=== PATIENT | female | born 1985 | race American Indian/Alaskan Native ===

== ENCOUNTER 2021-10-05 05:30 | Emergency (ER) | payer MEDICAID ==
[2021-10-05 05:37] VITALS: BP 143/77
== END 2021-10-05 23:00 | disposition left against medical advice (07) ==
LOC: ED 05:30
DX: R42 Dizziness and giddiness (principal); L29.9 Pruritus, unspecified; Z53.21 Procedure and treatment not carried out due to patient leaving prior to being seen by health care provider